=== PATIENT | male | born 1945 | race Caucasian/White ===

== ENCOUNTER 2018-01-26 06:30 | Day surgery (SDC) | payer MEDICARE, BC ==
[2018-01-26] MEDS: NS 1,000 ML IV (06:30)
[2018-01-26] MEDS ORDERED: PROPOFOL 200 MG/20 ML VIAL As Ordered (07:19)
== END 2018-01-26 09:04 | disposition home or self-care (01) ==
LOC: M OPP 06:30
DX: R19.5 Other fecal abnormalities (principal); Z53.8 Procedure and treatment not carried out for other reasons
CPT/HCPCS: 45378

== ENCOUNTER 2018-04-10 17:35 | Emergency (ER) | payer MEDICARE, BC ==
[2018-04-10] MEDS: NS 1,000 ML IV (18:45)
[2018-04-10 19:18] LABS: BEDSIDE GLUCOSE 149 MG/DL (83-110)
[2018-04-10 19:21] LABS: BASO % 0.4 % (0.0-1.0); EOS # 0.2 10^3/uL (0.0-0.50); EOS % 1.8 % (0.0-3.0); HEMATOCRIT 44.6 % (42.0-52.0); HEMOGLOBIN 14.9 g/dl (13.5-17.5); IMMATURE GRANULOCYTE % 0.4 % (0-3.0); LYMPH # 1.9 10^3/uL (1.5-4.5); LYMPH % 22.3 % (24.0-44.0); MEAN CORPUSCULAR HEMOGLOBIN 30.9 pg (27.0-33.0); MEAN CORPUSCULAR HGB CONC 33.4 g/dl (32.0-36.5); MEAN CORPUSCULAR VOLUME 92.5 fl (80.0-96.0); MONO # 0.8 10^3/uL (0.0-0.8); MONO % 9.1 % (0.0-5.0); NEUTROPHILS # 5.6 10^3/uL (1.8-7.7); PLATELET COUNT, AUTOMATED 229 10^3/uL (150-450); RED BLOOD COUNT 4.82 10^6/uL (4.30-6.10); RED CELL DISTRIBUTION WIDTH 13.3 % (11.5-14.5); WHITE BLOOD COUNT 8.4 10^3/uL (4.0-10.0)
[2018-04-10 19:34] LABS: LACTIC ACID SEPSIS PROTOCOL 1.9 MMOL/L (0.4-2.0)
[2018-04-10 19:37] LABS: KETONE, URINE AUTO RFX NEGATIVE (NEGATIVE); LEUKOCYTE ESTERASE UR AUTO RFX NEGATIVE (NEGATIVE); MUCUS, URINE RFX SMALL (NEGATIVE); NITRITE, URINE AUTO RFX NEGATIVE (NEGATIVE); RBC, URINE AUTO RFX 3 /HPF (0-3); SPECIFIC GRAVITY UR AUTO RFX 1.027 (1.002-1.035); SQUAM EPITHELIAL CELL UR AURFX 0 /HPF (0-6); WBC, URINE AUTO RFX 1 /HPF (0-3)
[2018-04-10 19:51] LABS: ANION GAP 8 MEQ/L (8-16); BLOOD UREA NITROGEN 25 MG/DL (7-18); CALCIUM LEVEL 8.7 MG/DL (8.8-10.2); CARBON DIOXIDE LEVEL 23 MEQ/L (21-32); CHLORIDE LEVEL 113 MEQ/L (98-107); CPK CREATINE PHOSPHOKINASE 151 U/L (39-308); CREATININE FOR GFR 1.02 MG/DL (0.70-1.30); ETHYL ALCOHOL (ETHANOL) < 0.003 % (0.000-0.010); FREE T4 0.97 NG/DL (0.76-1.46); GLOMERULAR FILTRATION RATE > 60.0 (>42); GLUCOSE, FASTING 158 MG/DL (70-100); MAGNESIUM LEVEL 2.2 MG/DL (1.8-2.4); POTASSIUM SERUM 4.2 MEQ/L (3.5-5.1); SODIUM LEVEL 144 MEQ/L (136-145); TROPONIN I < 0.02 NG/ML (< 0.10)
[2018-04-10 19:57] LABS: CK-MB VALUE MASS 2.9 NG/ML (<3.6); MB/CK RELATIVE INDEX 1.92 (< OR =4)
[2018-04-10] MEDS: NS 500 ML IV (20:12)
== END 2018-04-10 21:40 | disposition home or self-care (01) ==
LOC: M ED 17:35
DX: E86.0 Dehydration (principal); X30.XXXA Exposure to excessive natural heat, initial encounter; Y92.9 Unspecified place or not applicable; Y93.9 Activity, unspecified; Y99.0 Civilian activity done for income or pay; I45.10 Unspecified right bundle-branch block; I44.0 Atrioventricular block, first degree; E11.9 Type 2 diabetes mellitus without complications; E78.5 Hyperlipidemia, unspecified; N40.0 Benign prostatic hyperplasia without lower urinary tract symptoms; K40.90 Unilateral inguinal hernia, without obstruction or gangrene, not specified as recurrent; Z87.891 Personal history of nicotine dependence; M25.78 Osteophyte, vertebrae; M50.222 Other cervical disc displacement at C5-C6 level; M50.223 Other cervical disc displacement at C6-C7 level; M50.321 Other cervical disc degeneration at C4-C5 level; Z79.82 Long term (current) use of aspirin; Z79.84 Long term (current) use of oral hypoglycemic drugs; Z79.899 Other long term (current) drug therapy
CPT/HCPCS: 71045

== ENCOUNTER → 2019-11-01 | Outpatient (REF) | payer MEDICARE, BC ==
[~2019-11-01] MED LIST: ASPI81TA26 PO; BUPR150T5 PO; ETOD40ERTA PO; FINA5TAB2 PO; FLOM0.4C39 PO; INVO100T PO; METF500T13 PO; MULTCHW14 PO; PRAV40TA2 PO; TRES1INJ SC; TRUL0.5I SC; VITA250011 SL; [UNRECOGNIZED DRUG - OTHER]
[2019-11-01 13:53] LABS: FOLATE 12.9 NG/ML; VITAMIN B12 LEVEL > 2000 PG/ML
== END ==
LOC: M LAB REF 12:21
PROVIDERS: ATTEND Internal Medicine
DX: R41.3 Other amnesia (principal)

== ENCOUNTER → 2020-02-25 | Outpatient (REF) | payer MEDICARE, BC | LOC: M LAB REF 08:49 | PROVIDERS: ATTEND Physician Assistant | DX: L90.5 Scar conditions and fibrosis of skin (principal) | CPT/HCPCS: 11102; 17000; 17003; 88305; G0463 ==

== ENCOUNTER → 2021-01-07 | Outpatient (CLI) | payer MEDICARE, BC ==
--- NOTE | 2021-01-07 14:44 | REP ---
INDICATION: GAIT ABN. MEMORY LOSS. COMPARISON: None. TECHNIQUE: Axial T1, T2, STIR, FLAIR, gradient echo and diffusion-weighted imaging obtained. FINDINGS: No evidence of restricted diffusion to suggest acute infarction. No gradient echo susceptibility to suggest hemorrhage. The ventricles and extra-axial CSF spaces are within normal limits. No mass effect or midline shift. No abnormal fluid collections. Paranasal sinuses and mastoid air cells are clear. IMPRESSION: No acute findings. Normal examination. <Electronically signed by David Montesinos > 01/07/21 [id number]
== END ==
LOC: M RAD 13:35
PROVIDERS: ATTEND Internal Medicine
DX: R26.0 Ataxic gait (principal); G45.4 Transient global amnesia

== ENCOUNTER → 2021-04-16 | Outpatient (REF) | payer MEDICARE, BC ==
[2021-04-16 12:33] LABS: FOLATE 14.4 NG/ML; VITAMIN B12 LEVEL > 2000 PG/ML
== END ==
LOC: M LAB REF 11:24
PROVIDERS: ATTEND Internal Medicine
DX: R41.3 Other amnesia (principal)

== ENCOUNTER → 2022-03-24 | Outpatient (REF) | payer MEDICARE, BC ==
[~2022-03-24] MED LIST changes: +BUPR-71 PO; -BUPR150T5 PO
== END ==
LOC: M LAB REF 16:12
PROVIDERS: ATTEND Physician Assistant Medical
DX: L03.115 Cellulitis of right lower limb (principal)

== ENCOUNTER 2024-07-09 15:45 | Emergency (ER) | payer MEDICARE, BC ==
[~2024-07-09] VITALS: Ht 180.3 cm; Wt 93.0 kg
[2024-07-09 17:09] LABS: BASO % 0.6 % (0.0-1.0); EOS # 0.1 10^3/uL (0.0-0.5); HEMATOCRIT 43.6 % (42.0-52.0); HEMOGLOBIN 14.6 g/dl (13.5-17.5); LYMPH # 1.4 10^3/uL (1.5-5.0); LYMPH % 29.6 % (24.0-44.0); MEAN CORPUSCULAR HEMOGLOBIN 32.2 pg (27.0-33.0); MEAN CORPUSCULAR HGB CONC 33.5 g/dl (32.0-36.5); MEAN CORPUSCULAR VOLUME 96.2 fl (80.0-96.0); MONO # 0.5 10^3/uL (0.0-0.8); MONO % 11.1 % (2.0-8.0); NEUTROPHILS # 2.6 10^3/uL (1.5-8.5); NEUTROPHILS % 55.3 % (36.0-66.0); PLATELET COUNT, AUTOMATED 191 10^3/uL (150-450); RED BLOOD COUNT 4.53 10^6/uL (4.30-6.10); WHITE BLOOD COUNT 4.7 10^3/uL (4.0-10.0)
[2024-07-09 17:44] LABS: ALBUMIN 3.4 G/DL (3.2-5.2); ALKALINE PHOSPHATASE 74 U/L (46-116); ALT/SGPT 27 U/L (7.0-40); AST/SGOT 12 U/L (<34); BILIRUBIN,DIRECT < 0.1 MG/DL (<0.4); BILIRUBIN,TOTAL 0.3 MG/DL (0.3-1.2); BLOOD UREA NITROGEN 20 MG/DL (9-23); CALCIUM LEVEL 9.9 MG/DL (8.3-10.6); CARBON DIOXIDE LEVEL 26 MMOL/L (20-31); CHLORIDE LEVEL 107 MMOL/L (98-107); CREATININE FOR GFR 0.82 MG/DL (0.70-1.30); GLOMERULAR FILTRATION RATE > 60.0 (>42); GLUCOSE, FASTING 177 MG/DL (74-106); POTASSIUM SERUM 4.4 MMOL/L (3.5-5.1); SODIUM LEVEL 140 MMOL/L (136-145); THYROID STIMULATING HORMONE 3.499 uIU/ML (0.55-4.78); TOTAL PROTEIN 6.2 G/DL (5.7-8.2)
[2024-07-09 18:00] LABS: CK-MB VALUE MASS < 1.0 NG/ML (<3.6)
[2024-07-09 18:04] LABS: CPK CREATINE PHOSPHOKINASE 56 U/L (46-171); MB/CK RELATIVE INDEX 1.78 (< OR =4)
[2024-07-09 18:58] LABS: MB/CK RELATIVE INDEX 1.72 (< OR =4)
[2024-07-09 22:32] VITALS: TEMP 97.1
[2024-07-09 23:31] VITALS: BP 143/90; O2SAT 98
== END 2024-07-09 23:57 | disposition home or self-care (01) ==
LOC: EDBD 15:45 → M ED 15:45
DX: R41.3 Other amnesia (principal); I25.2 Old myocardial infarction; I44.0 Atrioventricular block, first degree; I45.10 Unspecified right bundle-branch block; E11.9 Type 2 diabetes mellitus without complications; I10 Essential (primary) hypertension; G47.33 Obstructive sleep apnea (adult) (pediatric); E78.5 Hyperlipidemia, unspecified; F32.A Depression, unspecified; Z79.1 Long term (current) use of non-steroidal anti-inflammatories (NSAID); Z79.84 Long term (current) use of oral hypoglycemic drugs; Z79.899 Other long term (current) drug therapy

== ENCOUNTER 2024-08-25 17:26 | Emergency (ER) | payer MEDICARE, BC ==
[~2024-08-25] VITALS: Ht 177.8 cm; Wt 102.3 kg
[2024-08-25 18:04] LABS: BASO % 0.4 % (0.0-1.0); EOS # 0.2 10^3/uL (0.0-0.5); EOS % 2.9 % (0.0-3.0); HEMATOCRIT 42.6 % (42.0-52.0); HEMOGLOBIN 14.1 g/dl (13.5-17.5); LYMPH # 1.5 10^3/uL (1.5-5.0); LYMPH % 18.3 % (24.0-44.0); MEAN CORPUSCULAR HEMOGLOBIN 31.7 pg (27.0-33.0); MEAN CORPUSCULAR HGB CONC 33.1 g/dl (32.0-36.5); MEAN CORPUSCULAR VOLUME 95.7 fl (80.0-96.0); MONO # 0.8 10^3/uL (0.0-0.8); MONO % 9.9 % (2.0-8.0); NEUTROPHILS # 5.5 10^3/uL (1.5-8.5); NEUTROPHILS % 68.2 % (36.0-66.0); PLATELET COUNT, AUTOMATED 192 10^3/uL (150-450); RED BLOOD COUNT 4.45 10^6/uL (4.30-6.10)
[2024-08-25] MEDS ORDERED: LEXA1TAB PO (18:19)
[2024-08-25] MEDS ORDERED: ETOD20CA PO (18:24)
[2024-08-25 18:35] LABS: CK-MB VALUE MASS 1.3 NG/ML (<3.6)
[2024-08-25 18:37] LABS: ALBUMIN 3.3 G/DL (3.2-5.2); BILIRUBIN,DIRECT 0.1 MG/DL (<0.4); BILIRUBIN,TOTAL 0.4 MG/DL (0.3-1.2); TOTAL PROTEIN 6.2 G/DL (5.7-8.2)
[2024-08-25 18:39] LABS: THYROID STIMULATING HORMONE 4.084 uIU/ML (0.55-4.78)
[2024-08-25 18:40] LABS: MB/CK RELATIVE INDEX 1.64 (< OR =4)
[2024-08-25 20:03] LABS: CK-MB VALUE MASS 1.2 NG/ML (<3.6)
[2024-08-25 20:05] LABS: MB/CK RELATIVE INDEX 1.6 (< OR =4)
[2024-08-25 21:51] LABS: CK-MB VALUE MASS 1.2 NG/ML (<3.6)
[2024-08-25 21:52] LABS: MB/CK RELATIVE INDEX 1.73 (< OR =4)
[2024-08-25 23:12] VITALS: O2SAT 99
[2024-08-26 00:47] VITALS: BP 130/64; TEMP 98.2; O2SAT 99
== END 2024-08-26 00:55 | disposition home or self-care (01) ==
LOC: M ED 17:26 → EDBD 17:26 → M ED 08-26 00:55
DX: S40.011A Contusion of right shoulder, initial encounter (principal); Y92.019 Unspecified place in single-family (private) house as the place of occurrence of the external cause; Y93.9 Activity, unspecified; Y99.9 Unspecified external cause status; W00.0XXA Fall on same level due to ice and snow, initial encounter; I44.0 Atrioventricular block, first degree; I45.10 Unspecified right bundle-branch block; I25.2 Old myocardial infarction; E11.9 Type 2 diabetes mellitus without complications; I10 Essential (primary) hypertension; I67.89 Other cerebrovascular disease; E78.5 Hyperlipidemia, unspecified; G47.33 Obstructive sleep apnea (adult) (pediatric); Z88.8 Allergy status to other drugs, medicaments and biological substances; Z79.1 Long term (current) use of non-steroidal anti-inflammatories (NSAID); Z79.4 Long term (current) use of insulin; Z79.84 Long term (current) use of oral hypoglycemic drugs; Z79.899 Other long term (current) drug therapy